=== PATIENT | female | born 1965 | race Caucasian/White ===

== ENCOUNTER → 2016-10-21 | Outpatient (CLI) | payer OTHER ==
[~2016-10-21] MED LIST: LEVOTHYROXINE25 MC1 PO
--- NOTE | ~2016-10-21 | US128 ---
[id number] [facility] [address] [place], [place] [address] [id number] O MR#: [id number] Acc #: [id number] NAME: KI FLOWERS : 1965 SEX: F STUDY DATE/TIME: 10/21/2016 13:56 UNIT: [facility]US ROOM: STUDY DESCRIPTION: Thyroid Attending Physician: Antonio Ayala Aprn Referring Physician: Antonio Ayala Aprn Ordering Physician: Antonio Ayala Aprn Primary Care Physician: [facility] MEDICAL IMAGING REPORT This report is preliminary unless electronic signature is present EXAM Thyroid ultrasound 10/21/2016 HISTORY Hypothyroidism. Patient on thyroid hormone replacement. Difficulty swallowing off and on for 1 year. FINDINGS The right thyroid lobe measured 1.6 cm x 3.5 cm x 1.7 cm while the left lobe measured 1.4 cm x 3.7 cm x 1.2 cm. The isthmus measured 1.3 mm in the AP direction. Both thyroid lobes are heterogeneous in echotexture and demonstrate no cystic or solid mass lesions. There are no masses extrinsic to the thyroid. Normal blood flow is seen throughout both thyroid lobes. IMPRESSION Diffusely heterogeneous thyroid demonstrating no discrete cystic or solid nodules. Dictated by... Shravan Fowler M.D. THIS IS AN ELECTRONICALLY VERIFIED REPORT Shravan Fowler M.D. at 10/24/2016 10:36 AM JULIETA/tito TD: 10/22/2016 09:59 JOB #: [id number] MEDICAL IMAGING REPORT COPY
== END | disposition home or self-care (01) ==
LOC: CGUS 13:28
DX: E03.9 Hypothyroidism, unspecified (principal)
CPT/HCPCS: 76536